=== PATIENT | male | born 1950 | race Asian ===

== ENCOUNTER 2018-04-10 19:06 | Emergency (ER) | payer MEDICARE, OTHER ==
[~2018-04-10] VITALS: Ht 167.6 cm; Wt 68.0 kg
[~2018-04-10 19:06] MED LIST: ATOR40TA PO; LISI40TA4 PO
[2018-04-10 19:22] VITALS: BP 100/56
--- NOTE | 2018-04-10 19:28 | NUR ---
PT [facility] BLS. TAKEN TO BED 2
--- NOTE | 2018-04-10 19:50 | NUR ---
Dr. Cardoso evaluating patient at bedside.
[2018-04-10] MEDS ORDERED: NACL 0.9% 1,000 ML IV ONE (20:30)
[2018-04-10] MEDS ORDERED: ASPIRIN 325 MG TAB PO ONE (20:30)
--- NOTE | 2018-04-10 20:59 | NUR ---
X-Ray at bedside.
[2018-04-10 21:03] LABS: BASOPHILS % (AUTO) 0.6 % (0.0-2.0); EOSINOPHILS # (AUTO) 0.1 K/uL (0-0.4); EOSINOPHILS % (AUTO) 2.3 % (0.0-4.0); HEMATOCRIT 38.9 % (36-52); HEMOGLOBIN 12.9 g/dL (12.0-18.0); LYMPHOCYTES # (AUTO) 1.4 K/uL (2.0-11.5); LYMPHOCYTES % (AUTO) 25.7 % (20.5-51.1); MEAN CORPUSCULAR HEMOGLOBIN 33 pg (27-31); MEAN CORPUSCULAR HGB CONC 33 g/dL (33-37); MEAN CORPUSCULAR VOLUME 98.2 fL (80-94); MONOCYTES # (AUTO) 0.8 K/uL (0.8-1.0); MONOCYTES % (AUTO) 15.3 % (1.7-9.3); NEUTROPHILS % (AUTO) 56.1 % (42.2-75.2); PLATELET COUNT (AUTO) 144 K/uL (140-450); RED BLOOD CELL COUNT(AUTO) 3.96 MIL/uL (4.20-6.10); RED CELL DISTRIBUTION WIDTH 15.4 % (11.6-13.7); WHITE BLOOD COUNT (AUTO) 5.4 K/uL (4.8-10.8)
[2018-04-10 21:19] LABS: ALBUMIN 3.2 g/dL (3.4-5.0); ANION GAP 16.4 (8-16); CARBON DIOXIDE 23.2 mmol/L (21-32); CREATININE 1.8 mg/dL (0.7-1.3); PROTHROMBIN TIME 10.5 secs (10.8-13.4); TOTAL BILIRUBIN 0.9 mg/dL (0.0-1.0)
[2018-04-10 21:24] LABS: POTASSIUM 2.6 mmol/L (3.5-5.1)
[2018-04-10 21:25] LABS: CREATINE KINASE MB 1.6 ng/mL (0-3.6); THYROID STIMULATING HORMONE 1.31 uIU/mL (0.34-3.74)
[2018-04-10] MEDS ORDERED: POTASSIUM CHLORIDE 10 MEQ TABER PO ONE (21:25)
[2018-04-10] MEDS ORDERED: POTASSIUM CHL 20 MEQ/NACL 0.9% 1,000 ML IV ONE (21:30)
--- NOTE | 2018-04-10 22:35 | NUR ---
Pt refused all treatment.
--- NOTE | 2018-04-10 22:35 | NUR ---
Patient does not wish to proceed with medical care recommended by Emmanuel. Patient given information related to possible complications, up to and including , which could occur as a result of leaving hospital at this time. Patient verbalizes understanding of risks involved leaving against medical advice. Patient has signed AMA form.
--- NOTE | 2018-04-10 23:10 | NUR ---
PT SIGNED AGAINST MEDICAL ADVICE. ASKED TO CALL FOR TAXI TO TAKE HIM HOME. PT ESCORTED TO LOBBY TO WAIT. ID BAND REMOVED.
== END 2018-04-10 22:35 | disposition left against medical advice (07) ==
LOC: MED 19:06
DX: R55 Syncope and collapse (principal); E87.6 Hypokalemia; I10 Essential (primary) hypertension; Z79.899 Other long term (current) drug therapy
CPT/HCPCS: 36415; 70450; 71045; 80053; 82550; 82553; 83880; 84443; 84484; 85025; 85379; 85610; 85730; 86886; 86900; 86901; 93005; 99285; G0482; J7030; Q0092

== ENCOUNTER 2019-11-24 11:04 | Observation (INO) | payer OTHER, MEDICARE ==
[~2019-11-24] VITALS: Ht 165.1 cm; Wt 69.9 kg
--- NOTE | 2019-11-24 11:05 | NUR ---
PT BIB [facility] TO ER BED 10
[2019-11-24 11:07] VITALS: BP 104/55
--- NOTE | 2019-11-24 11:07 | NUR ---
69 y/o m biba c/c abnormal heart rate and per ems "not acting self" approximately 0800 hours. per ems having episodes of new onset of a-fib rvr. pt a/ox4 on assessment. per pt no pain, no discomfort. pt allergies to sulfa. hx htn, high cholesterol. rx takes for htn and high cholesterol, has been compliant. denies n/v/d; denies trauma or falling, and hitting head. side rail x1. at bedside
[2019-11-24] MEDS ORDERED: NACL 0.9% 500 ML IV SCH (11:22)
[2019-11-24 12:10] LABS: HEMATOCRIT 40.4 % (36-52); HEMOGLOBIN 13.8 g/dL (12.0-18.0); MEAN CORPUSCULAR HEMOGLOBIN 32 pg (27-31); MEAN CORPUSCULAR HGB CONC 34 g/dL (33-37); MEAN CORPUSCULAR VOLUME 93.6 fL (80-94); PLATELET COUNT (AUTO) 112 K/uL (140-450); RED BLOOD CELL COUNT(AUTO) 4.32 MIL/uL (4.20-6.10); RED CELL DISTRIBUTION WIDTH 14.1 % (11.6-13.7); WHITE BLOOD COUNT (AUTO) 6.9 K/uL (4.8-10.8)
[2019-11-24 12:23] LABS: PROTHROMBIN TIME 9.6 secs (10.8-13.4)
[2019-11-24 12:29] LABS: LYMPHOCYTES % (MANUAL) 8 % (20-46); MONOCYTES % (MANUAL) 6 % (5-12)
[2019-11-24 12:43] LABS: ALBUMIN 3.5 g/dL (3.4-5.0); TOTAL BILIRUBIN 0.8 mg/dL (0.0-1.0)
[2019-11-24] MEDS ORDERED: DILTIAZEM 25 MG/5 ML VIAL IVP ONE (12:45)
[2019-11-24 12:58] LABS: ANION GAP 16.7 (8-16); CARBON DIOXIDE 25.1 mmol/L (21-32); CREATININE 1.6 mg/dL (0.7-1.3); POTASSIUM 2.8 mmol/L (3.5-5.1)
--- NOTE | 2019-11-24 12:58 | NUR ---
POTASSIUM 2.8, REPORTED TO DR NORMAN
[2019-11-24] MEDS ORDERED: POTASSIUM CHLORIDE 10 MEQ TABER PO ONE (13:00)
[2019-11-24 13:12] LABS: APPEARANCE,URINE CLEAR (CLEAR); BILIRUBIN,URINE NEGATIVE (NEGATIVE); BLOOD, URINE NEGATIVE (NEGATIVE); COLOR,URINE YELLOW (YELLOW); LEUKOCYTE ESTERASE ,URINE NEGATIVE (NEGATIVE); NITRITE, URINE NEGATIVE (NEGATIVE); PH,URINE 6.5 (5.0-9.0); UGLUCOSE NEGATIVE (NEGATIVE)
[2019-11-24] MEDS ORDERED: ENOXAPARIN 80 MG/0.8 ML SYR SUBQ ONE (13:40)
[2019-11-24] MEDS ORDERED: ENOXAPARIN 100 MG/ML SYR SUBQ ONE (13:46)
[2019-11-24] MEDS ORDERED: ORE25 PO (14:03)
[2019-11-24] MEDS ORDERED: LOSA50TA57 PO (14:03)
[2019-11-24] MEDS ORDERED: ATEN50TA8 PO (14:03)
[2019-11-24] MEDS ORDERED: POTA10TE30 PO (14:03)
--- NOTE | 2019-11-24 14:31 | NUR ---
PT TRANSFERED DOWN TO [facility]
--- NOTE | 2019-11-24 14:40 | NUR ---
PATIENT ARRIVE ON UNIT VIA GURNEY, PATIENT AMBULATED TO BED ON STEADY GAIT. RECEIVED REPORT FROM ER NURSE AT BEDSIDE FOR CONTINUITY OF CARE. PATIENT AOX4, GERMAN SPEAKING. IV SITE TO LAC 18G, INTACT, PATENT, ASYMPTOMATIC, CURRENTLY SALINE LOCK. UPDATED BOARD. UPDATED PATIENT AND FRIEND, [place], WITH PLAN OF CARE, THEY VERBALIZED UNDERSTANDING. ORIENTED PATIENT TO ROOM, CALL LIGHT, VISITING HOURS, BATHROOM, AND TV. INITIAL ASSESSMENT DONE, MRSA SCREENING DONE. CALL LIGHT WITHIN REACH, WILL CONTINUE TO MONITOR PATIENT.
--- NOTE | 2019-11-24 14:45 | NUR ---
Patient will be admitted to care of DR JEROME. Admited to TELEMETRY. Will go to room 122B. Belongings list completed. Report to NAZARIO CANTRELL.
[2019-11-24 14:50] VITALS: BP 124/61
[2019-11-24] MEDS ORDERED: ONDANSETRON 4 MG/2 ML VIAL IVP PRN (14:50)
--- NOTE | 2019-11-24 15:00 | NUR ---
DR JEROME IN TO SEE THE PATIENT. WILL WAIT FOR HIS ORDERS.
--- NOTE | 2019-11-24 15:10 | NUR ---
DR. AWAN IN TO SEE THE PATIENT. WILL WAIT FOR HIS ORDERS.
--- NOTE | 2019-11-24 15:40 | NUR ---
PATIENT CURRENTLY GETTING RENAL US. WILL WAIT FOR RESULTS. DIETARY ALSO BROUGHT LATE TRAY FOR PATIENT.
[2019-11-24 16:00] VITALS: BP 129/63
[2019-11-24] MEDS ORDERED: POTASSIUM CHLORIDE 10 MEQ TABER PO SCH (16:00)
--- NOTE | 2019-11-24 16:30 | NUR ---
EDUCATED ABOUT AFIB AND HYPOKALEMIA PROVIDED TO PATIENT AND FRIEND AT BEDSIDE PER THEIR REQUEST.
--- NOTE | 2019-11-24 16:50 | NUR ---
CALLED DR JEROME TO ASK HIM ABOUT PATIENT'S HOME MEDS. NEW ORDERS IN TO CONTINUE HOME MEDICATIONS.
--- NOTE | 2019-11-24 17:30 | NUR ---
PATIENT'S FRIEND BROUGHT PATIENT'S EYE GLASSES AND DENTURES. BELONGINGS LIST UPDATED.
--- NOTE | 2019-11-24 19:25 | NUR ---
REPORT GIVEN TO WAITER/WAITRESS FIRST CLASS NURSE AT BEDSIDE FOR CONTINUITY OF CARE. PATIENT IN STABLE CONDITION.
--- NOTE | 2019-11-24 19:30 | NUR ---
RECEIVED BEDSIDE REPORT FROM AM SHIFT RN FOR PT'S CONTINUITY OF CARE. PT IS AAOX4, ON MORTGAGE BROKER, ON ROOM AIR, HAS LEFT AC 18G SALINE LOCK, DENIES ANY PAIN AT THIS TIME. EXPLAINED TO PT THE WOOL HAT FINISHER ROUTINE, PT VERBALIZED UNDERSTANDING. SAFETY MEASURES IN PLACE, AND CALL LIGHT IS WITHIN REACH. WILL MONITOR PT THROUGHOUT SHIFT.
[2019-11-24 20:00] VITALS: BP 126/73
--- NOTE | 2019-11-24 21:00 | NUR ---
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 PT TEACHING GIVEN, RE: TESTS DUE TOMORROW, AND THE IMPORTANCE OF THEM. PT VERBALIZED UNDERSTANDING BUT STATES HE DOES NOT WANT TO STAY HERE AT THE HOSPITAL FOR ONE MORE NIGHT. WILL ENDORSE TO AM SHIFT RN AND THE MD.
[2019-11-25] VITALS: BP 127/83
--- NOTE | 2019-11-25 00:30 | NUR ---
VS CHECKED AND CHARTED. PT DENIES ANY PAIN AT THIS TIME. PT'S NEEDS MET AT THIS TIME. WILL CONTINUE TO MONITOR PT.
--- NOTE | 2019-11-25 02:10 | NUR ---
PT LYING DOWN ASLEEP WITH NO SIGNS OF DISTRESS. WILL CONTINUE TO MONITOR PT.
[2019-11-25 04:00] VITALS: BP 135/72
--- NOTE | 2019-11-25 04:15 | NUR ---
VS CHECKED AND CHARTED. PT WAS ASLEEP, WOKE UP AND DENIES ANY PAIN. PT DENIES ANY NEEDS AT THIS TIME. WILL CONTINUE TO MONITOR PT.
--- NOTE | 2019-11-25 06:00 | NUR ---
PT AWAKE, DENIES ANY PAIN. PT'S NEEDS MET AT THIS TIME. PT MADE COMFORTABLE. WILL ENDORSE TO AM SHIFT RN FOR PT'S CONTINUITY OF CARE.
--- NOTE | 2019-11-25 07:10 | NUR ---
RECEIVED BEDSIDE REPORT FROM FLOAT REMOVER NURSE FOR CONTINUITY OF CARE. PT IS AAOX4, ON CHEESE WRAPPER, ON ROOM AIR, HAS LEFT AC 18G SALINE LOCK, DENIES ANY PAIN AT THIS TIME. UPDATED BOARD. UPDATED PATIENT WITH PLAN OF CARE. HE VERBALIZED UNDERSTANDING. SAFETY MEASURES IN PLACE, CALL LIGHT IS WITHIN REACH. WILL CONTINUE TO MONITOR PATIENT.
--- NOTE | 2019-11-25 07:35 | NUR ---
DR RIVERA IN TO SEE THE PATIENT. WILL WAIT FOR HIS RECOMMENDATIONS.
[2019-11-25 07:48] VITALS: BP 137/75
[2019-11-25 08:06] LABS: BASOPHILS % (AUTO) 0.1 % (0.0-2.0); HEMATOCRIT 42.4 % (36-52); HEMOGLOBIN 14.2 g/dL (12.0-18.0); LYMPHOCYTES # (AUTO) 0.7 K/uL (2.0-11.5); LYMPHOCYTES % (AUTO) 9.8 % (20.5-51.1); MEAN CORPUSCULAR HEMOGLOBIN 32 pg (27-31); MEAN CORPUSCULAR HGB CONC 34 g/dL (33-37); MEAN CORPUSCULAR VOLUME 95.5 fL (80-94); MONOCYTES # (AUTO) 0.2 K/uL (0.8-1.0); MONOCYTES % (AUTO) 3.2 % (1.7-9.3); NEUTROPHILS # (AUTO) 5.9 K/uL (1.8-7.7); NEUTROPHILS % (AUTO) 86.9 % (42.2-75.2); PLATELET COUNT (AUTO) 120 K/uL (140-450); RED BLOOD CELL COUNT(AUTO) 4.43 MIL/uL (4.20-6.10); RED CELL DISTRIBUTION WIDTH 14.1 % (11.6-13.7); WHITE BLOOD COUNT (AUTO) 6.7 K/uL (4.8-10.8)
--- NOTE | 2019-11-25 08:54 | NUR ---
ORDERED MEDICATIONS GIVEN. PATIENT TOLERATED THEM WELL. PATIENT WAITING TO SEE DR. JEROME TO SEE ABOUT POSSIBLE DISCHARGE. PATIENT HAS NO COMPLAINTS AT THIS TIME. CALL LIGHT WITHIN REACH. WILL CONTINUE TO MONITOR PATIENT.
[2019-11-25] MEDS ORDERED: LOSARTAN 50 MG TAB PO SCH (09:00)
[2019-11-25] MEDS ORDERED: ATORVASTATIN 20 MG TAB PO SCH (09:00)
[2019-11-25] MEDS ORDERED: ATENOLOL 50 MG TAB PO SCH (09:00)
[2019-11-25] MEDS ORDERED: POTASSIUM CHLORIDE 10 MEQ TABER PO SCH (09:00)
[2019-11-25] MEDS ORDERED: HYDROCHLOROTHIAZIDE 25 MG TAB PO SCH (09:00)
[2019-11-25] MEDS ORDERED: ENOXAPARIN 40 MG/0.4 ML SYR SUBQ SCH (09:00)
[2019-11-25 09:39] LABS: ALBUMIN 3.4 g/dL (3.4-5.0); ANION GAP 16.5 (8-16); CARBON DIOXIDE 26.9 mmol/L (21-32); CREATININE 1.4 mg/dL (0.7-1.3); POTASSIUM 3.4 mmol/L (3.5-5.1); TOTAL BILIRUBIN 1.4 mg/dL (0.0-1.0)
[2019-11-25] MEDS ORDERED: ATEN100T6 PO (10:03)
--- NOTE | 2019-11-25 10:15 | NUR ---
DR DOMINGUEZ IN TO SEE PATIENT. WILL WAIT FOR HIS ORDERS.
[2019-11-25] MEDS ORDERED: ATEN50TA8 PO (10:17)
--- NOTE | 2019-11-25 10:45 | NUR ---
DISCHARGE INSTRUCTIONS AND EDUCATION GIVEN TO PATIENT AND FRIEND [place]. PATIENT AGREED TO CONTINUE TAKING ALL MEDS PRESCRIBED, UNDERSTOOD NEW DOSE OF ATENOLOL, FOLLOW UP WITH PCP AND RADIOLOGIC TECHNOLOGY PROGRAM DIRECTOR, GOING TO ER IF NEEDED. IV REMOVED, IV CANNULA INTACT, MINIMAL BLEEDING NOTED. ID BANDS REMOVED, TELE MONITOR REMOVED. PATIENT WILL NOW GET CHANGED INTO HIS OWN CLOTHING SO THAT HE CAN BE DISCHARGED HOME.
--- NOTE | 2019-11-25 11:10 | NUR ---
PATIENT WHEELED OFF OF FLOOR WITH RN. PATIENT TOOK ALL HIS BELONGINGS WITH HIM. PATIENT IN STABLE CONDITION.
[2019-11-25 13:10] LABS: TOTAL PROTEIN URINE 34.6 MG/DL
== END 2019-11-25 11:10 | disposition home or self-care (01) ==
LOC: MED 11:04 → MTU 13:49
PROVIDERS: ADMIT Internal Medicine; ATTEND Internal Medicine
DX: I48.20 Chronic atrial fibrillation, unspecified (principal); I12.9 Hypertensive chronic kidney disease with stage 1 through stage 4 chronic kidney disease, or unspecified chronic kidney disease; E78.5 Hyperlipidemia, unspecified; N18.3 Chronic kidney disease, stage 3 (moderate); R41.82 Altered mental status, unspecified; Z79.899 Other long term (current) drug therapy; Z88.2 Allergy status to sulfonamides
CPT/HCPCS: 36415; 71045; 76770; 80053; 81003; 82570; 83605; 83880; 84156; 84443; 84484; 85025; 85610; 85730; 87040; 87081; 87086; 93005; 96361; 96372; 96374; 99285; G0378; J1650; J3490; Q0092

== ENCOUNTER 2020-09-09 07:38 | Outpatient (CLI) | payer MEDICARE, OTHER ==
[~2020-09-09 07:38] MED LIST changes: +ATEN50TA8 PO; -ATOR40TA PO; -LISI40TA4 PO; +LOSA50TA57 PO; +ORE25 PO; +POTA10TE30 PO
== END 2020-09-09 22:11 | disposition home or self-care (01) ==
LOC: MRD 07:38
DX: M47.814 Spondylosis without myelopathy or radiculopathy, thoracic region (principal); I70.0 Atherosclerosis of aorta
CPT/HCPCS: 71046; 76770; Q0092

== ENCOUNTER 2021-05-05 10:45 | Outpatient (CLI) | payer MEDICARE, OTHER ==
[~2021-05-05 10:45] MED LIST changes: +HYDR-4004 PO; -ORE25 PO
[2021-05-05 11:17] LABS: APPEARANCE,URINE CLEAR (CLEAR); BILIRUBIN,URINE NEGATIVE (NEGATIVE); BLOOD, URINE NEGATIVE (NEGATIVE); COLOR,URINE YELLOW (YELLOW); LEUKOCYTE ESTERASE ,URINE NEGATIVE (NEGATIVE); NITRITE, URINE NEGATIVE (NEGATIVE); UGLUCOSE NEGATIVE (NEGATIVE)
[2021-05-05 11:23] LABS: BASOPHILS % (AUTO) 0.7 % (0.0-2.0); EOSINOPHILS # (AUTO) 0.1 K/uL (0-0.4); EOSINOPHILS % (AUTO) 3.4 % (0.0-4.0); HEMATOCRIT 39.4 % (36-52); HEMOGLOBIN 13.3 g/dL (12.0-18.0); LYMPHOCYTES # (AUTO) 1.3 K/uL (2.0-11.5); LYMPHOCYTES % (AUTO) 29.1 % (20.5-51.1); MEAN CORPUSCULAR HEMOGLOBIN 32 pg (27-31); MEAN CORPUSCULAR HGB CONC 34 g/dL (33-37); MEAN CORPUSCULAR VOLUME 93.4 fL (80-94); MONOCYTES # (AUTO) 0.6 K/uL (0.8-1.0); MONOCYTES % (AUTO) 12.9 % (1.7-9.3); NEUTROPHILS # (AUTO) 2.4 K/uL (1.8-7.7); NEUTROPHILS % (AUTO) 53.9 % (42.2-75.2); PLATELET COUNT (AUTO) 138 K/uL (140-450); RED BLOOD CELL COUNT(AUTO) 4.22 MIL/uL (4.20-6.10); RED CELL DISTRIBUTION WIDTH 13.9 % (11.6-13.7); WHITE BLOOD COUNT (AUTO) 4.4 K/uL (4.8-10.8)
[2021-05-05 11:45] LABS: ALBUMIN 3.8 g/dL (3.4-5.0); ANION GAP 7.2 (8-16); ASPARTATE AMINOTRANSFERASE 23 U/L (15-37); CARBON DIOXIDE 33.3 mmol/L (21-32); CHLORIDE 104 mmol/L (98-107); CHOL/HDL RATIO 2.2 (1-4.5); CREATININE 1.2 mg/dL (0.6-1.3); GLUCOSE 102 mg/dL (74-106); HDL CHOLESTEROL 59 mg/dL (40-60); LDL (CALC) 55 mg/dL (60-100); POTASSIUM 3.5 mmol/L (3.5-5.1); SODIUM SERUM 141 mmol/L (136-145); THYROID STIMULATING HORMONE 0.71 uIU/mL (0.34-3.74); TOTAL BILIRUBIN 0.9 mg/dL (0.0-1.0); TRIGLYCERIDES 87 mg/dL (30-150); UREA NITROGEN, BLOOD 25 mg/dL (7-18); URIC ACID 8.1 mg/dL (2.6-7.2)
== END 2021-05-05 19:48 | disposition home or self-care (01) ==
LOC: MLB 10:45
DX: I10 Essential (primary) hypertension (principal); D65 Disseminated intravascular coagulation [defibrination syndrome]; E55.9 Vitamin D deficiency, unspecified; E78.2 Mixed hyperlipidemia; Z00.00 Encounter for general adult medical examination without abnormal findings
CPT/HCPCS: 36415; 80053; 81003; 82306; 83036; 83735; 84154; 84443; 84550; 85025; 85651

== ENCOUNTER 2022-09-19 08:38 | Outpatient (CLI) | payer MEDICARE, OTHER ==
[~2022-09-19 08:38] MED LIST changes: +POTA10TA70 PO; -POTA10TE30 PO
[2022-09-19 10:23] LABS: ALBUMIN 3.6 g/dL (3.4-5.0); ANION GAP 8.6 (8-16); ASPARTATE AMINOTRANSFERASE 30 U/L (15-37); CARBON DIOXIDE 34.4 mmol/L (21-32); CHLORIDE 101 mmol/L (98-107); CREATININE 1.2 mg/dL (0.6-1.3); GLUCOSE 104 mg/dL (74-106); HDL CHOLESTEROL 70 mg/dL (40-60); LDL (CALC) 59 mg/dL (60-100); MAGNESIUM 2.1 mg/dL (1.8-2.4); SODIUM SERUM 140 mmol/L (136-145); THYROID STIMULATING HORMONE 0.85 uIU/mL (0.34-3.74); TOTAL BILIRUBIN 0.8 mg/dL (0.0-1.0); TRIGLYCERIDES 60 mg/dL (30-150); UREA NITROGEN, BLOOD 16 mg/dL (7-18)
== END 2022-09-19 20:34 | disposition home or self-care (01) ==
LOC: MLB 08:38
PROVIDERS: ATTEND Internal Medicine
DX: E78.5 Hyperlipidemia, unspecified (principal); Z79.899 Other long term (current) drug therapy
CPT/HCPCS: 36415; 80053; 83036; 83735; 84436; 84443; 84481